=== PATIENT | male | born 1995 | race Caucasian/White ===

== ENCOUNTER 2017-02-14 22:25 | Emergency (ER) | payer MEDICAID ==
[2017-02-14 22:40] VITALS: BP 117/57; PULSE 90; RESP 16; TEMP 98.2; O2SAT 99
--- NOTE | 2017-02-14 23:56 | ED PDOC ---
Lower Extremity Pain/Injury Chief Complaint (Nursing): Lower Extremity Problem/Injury Chief Complaint (Provider): Non-traumatic, right ankle pain History Per: Patient History/Exam Limitations: no limitations Onset/Duration Of Symptoms: Days (3) Current Symptoms Are (Timing): Still Present Severity: Moderate Pain Scale Rating Of: 4 Past Medical History Vital Signs: Last Vital Signs Temp 98.2 F 02/14/17 22:38 Pulse 90 02/14/17 22:38 Resp 16 02/14/17 22:38 BP 117/57 L 02/14/17 22:38 Pulse Ox 99 02/14/17 22:38 - Medical History PMH: Anxiety, Asthma, Depression, Schizophrenia - Family History Family History: States: Unknown Family Hx - Immunization History Hx Tetanus Toxoid Vaccination: No Hx Influenza Vaccination: No Hx Pneumococcal Vaccination: No - Home Medications Home Medications: Ambulatory Orders Medication Instructions Recorded Minocycline 75 mg PO DAILY 10/05/14 Multi Vitamins Plus Calcium 1 mg PO DAILY 10/05/14 Childrens Seroquel 150 mg PO DAILY 10/05/14 Clindamycin [Cleocin] 1 tab PO QID #40 cap 09/07/16 Ibuprofen [Motrin] 600 mg PO Q8 PRN #21 tab 09/07/16 Guaifenesin [Adult Tussin Chest 20 ml PO Q6 PRN #400 ml 12/09/16 Congestion] Ibuprofen [Motrin] 600 mg PO Q8 PRN #15 tab 12/09/16 Ibuprofen [Motrin Tab] 800 mg PO Q6H PRN #20 tab 02/14/17 - Allergies Allergies/Adverse Reactions: Allergies Allergy/AdvReac Type Severity Reaction Status Date / Time nut - unspecified Allergy RASH Verified 08/20/16 17:15 shellfish derived Allergy ANAPHYLAXIS Verified 08/20/16 17:15 - ECG O2 Sat by Pulse Oximetry: 99 Disposition - Clinical Impression Clinical Impression: Tendonitis - Patient ED Disposition Is Patient to be Admitted: No Counseled Patient/Family Regarding: Diagnosis, Need For Followup, Rx Given - Disposition Referrals: [facility] [Outside] [facility] [Outside] Disposition: Routine/Home Disposition Time: 23:55 Condition: GOOD Prescriptions: Ibuprofen [Motrin Tab] 800 mg PO Q6H PRN #20 tab PRN Reason: Pain Instructions: Tendinitis (ED)
--- NOTE | 2017-02-15 09:24 | RAD ---
HISTORY: Lateral ankle pain, no trauma COMPARISON: No prior FINDINGS: BONES: Normal. No fracture. JOINTS: Normal. No osteoarthritis. SOFT TISSUE: Normal. OTHER FINDINGS: None . IMPRESSION: Normal Bone Xray.
== END 2017-02-15 00:21 | disposition home or self-care (01) ==
LOC: H.ER 22:25
DX: M25.571 Pain in right ankle and joints of right foot (principal)

== ENCOUNTER 2017-03-30 12:41 | Emergency (ER) | payer MEDICAID ==
[2017-03-30 13:11] VITALS: BP 122/69; PULSE 68; RESP 16; TEMP 98; O2SAT 100
[2017-03-30] MEDS ORDERED: TDAP Vaccine 0.5 mL Syr IM ONE (13:18)
--- NOTE | 2017-03-30 13:21 | ED PDOC ---
HPI: Skin/Bite Injury Time Seen by Provider: 03/30/17 13:04 Chief Complaint (Provider): Dog bite History Per: Patient History/Exam Limitations: no limitations Onset/Duration Of Symptoms: Mins Current Symptoms Are (Timing): Still Present Location Of Injury: Right: Forearm, Anterior: Forearm Quality Of Symptoms: Painful Severity: Moderate Additional History Per: Patient Additional Complaint(s): The pt is a 21yo male with PMHx of Asthma, presents to the ED for evaluation of a dog bite sustained from his pet. Pt reports he has owned the dog for 2 months and is unsure of the pet's immunization status. Pt denies any numbness and tingling to his arm and reports his tetanus is not up to date. Pt currently offers no additional medical complaints. - Animal Bite Description Of The Attack: Playing With Animal Description Of The Animal: Family Pet Animal Appears: Well Animal's Immunization Status: Unknown Past Medical History Reviewed: Historical Data, Nursing Documentation, Vital Signs Vital Signs: Last Vital Signs Temp 98 F 03/30/17 13:10 Pulse 68 03/30/17 13:10 Resp 16 03/30/17 13:10 BP 122/69 03/30/17 13:10 Pulse Ox 100 03/30/17 13:28 - Medical History PMH: Anxiety, Asthma, Depression, Schizophrenia - Family History Family History: States: Unknown Family Hx - Immunization History Hx Tetanus Toxoid Vaccination: No Hx Influenza Vaccination: No Hx Pneumococcal Vaccination: No - Home Medications Home Medications: Ambulatory Orders Medication Instructions Recorded Minocycline 75 mg PO DAILY 10/05/14 Multi Vitamins Plus Calcium 1 mg PO DAILY 10/05/14 Childrens Seroquel 150 mg PO DAILY 10/05/14 Clindamycin [Cleocin] 1 tab PO QID #40 cap 09/07/16 Ibuprofen [Motrin] 600 mg PO Q8 PRN #21 tab 09/07/16 Guaifenesin [Adult Tussin Chest 20 ml PO Q6 PRN #400 ml 12/09/16 Congestion] Ibuprofen [Motrin] 600 mg PO Q8 PRN #15 tab 12/09/16 Ibuprofen [Motrin Tab] 800 mg PO Q6H PRN #20 tab 02/14/17 Amoxicillin/Clavulanate [Augmentin 1 tab PO BID #20 tab 03/30/17 500 MG-125 MG] - Allergies Allergies/Adverse Reactions: Allergies Allergy/AdvReac Type Severity Reaction Status Date / Time nut - unspecified Allergy RASH Verified 08/20/16 17:15 shellfish derived Allergy ANAPHYLAXIS Verified 08/20/16 17:15 Review of Systems ROS Statement: Except As Marked, All Systems Reviewed And Found Negative Musculoskeletal: Positive for: Other (superficial bite wound to right forearm) Neurological: Negative for: Weakness, Numbness, Other (tingling in right forearm ) Physical Exam - Reviewed Nursing Documentation Reviewed: Yes Vital Signs Reviewed: Yes - Physical Exam Appears: Positive for: Well, Non-toxic, No Acute Distress Head Exam: Positive for: ATRAUMATIC, NORMAL INSPECTION, NORMOCEPHALIC Skin: Positive for: Normal Color, Warm, DRY Eye Exam: Positive for: Normal appearance Neck: Positive for: Normal Cardiovascular/Chest: Positive for: Regular Rate, Rhythm Respiratory: Negative for: Respiratory Distress Extremity: Positive for: Normal ROM (normal ROM actively of right wrist and elbow), Other (superficial bite wound on volar surface of right mid-forearm. No bleeding or erythema noted.). Negative for: Deformity, Swelling - ECG O2 Sat by Pulse Oximetry: 100 (RA) Pulse Ox Interpretation: Normal Medical Decision Making Medical Decision Making: Time: 1320 Impression: Superficial bite wound on right forearm Plan: -- TDAP booster -- Clean and irrigate wound with nl saline --Reassess 1330 Pt stable for d/c home. Scribe Attestation: All records were documented by Vesta Kearney, acting as a Scribe for FÉLIX Hoffman. Provider Scribe Attestation: All medical record entries made by the Scribe were at my direction and personally dictated by me. I have reviewed the chart and agree that the record accurately reflects my personal performance of the history, physical exam, medical decision making, and the department course for this patient. I have also personally directed, reviewed, and agree with the discharge instructions and disposition. Disposition - Clinical Impression Clinical Impression: Dog bite - Patient ED Disposition Is Patient to be Admitted: No - Disposition Referrals: [facility] [Outside] Disposition: Routine/Home Disposition Time: 13:32 Condition: GOOD Additional Instructions: Follow up with [facility] in 2 days for wound check. Prescriptions: Amoxicillin/Clavulanate [Augmentin 500 MG-125 MG] 1 tab PO BID #20 tab
== END 2017-03-30 13:39 | disposition home or self-care (01) ==
LOC: H.ER 12:41
DX: S51.851A Open bite of right forearm, initial encounter (principal); W54.0XXA Bitten by dog, initial encounter; Y92.89 Other specified places as the place of occurrence of the external cause; Z23 Encounter for immunization

== ENCOUNTER 2017-07-21 23:30 | Emergency (ER) | payer MEDICAID ==
[2017-07-21 23:39] VITALS: BP 141/77; PULSE 66; RESP 16; TEMP 98; O2SAT 99
--- NOTE | 2017-07-21 23:56 | ED PDOC ---
HPI: Wound Care - HPI Time Seen by Provider: 07/21/17 23:45 Chief Complaint (Nursing): Wound Check Chief Complaint (Provider): Injury History Per: Patient History Of Present Illness: Pt. presents after injury at [facility]. Pt. was jostling with his girlfriend at [facility] and fell on his left outstretched hand and scraped his left forearm dorsal surface on the pavement. Pt. states he cleaned the abrasion with peroxide. Pt. states since then he has a burning sensation which has not resolved. Pt. states just prior to arrival to the E.R. was at his girlfriend's house when the burning became really bad. Pt. states he is not taking and pain medication and has not putting any ointments on the wound. On ROS, pt. denies any fever, chills, pus, drainage, or blood at the site of the wound. Exam Limitations: no limitations Onset/Duration Of Symptoms: Days (Two) Current Symptoms Are (Timing): Still Present Location Of Injury: Left: Forearm Quality Of Symptoms: Other (Burning) Severity: Moderate Past Medical History Vital Signs: Last Vital Signs Temp 98.0 F 07/21/17 23:36 Pulse 66 07/21/17 23:36 Resp 16 07/21/17 23:36 BP 141/77 07/21/17 23:36 Pulse Ox 99 07/21/17 23:36 - Medical History PMH: Anxiety, Asthma, Depression, Schizophrenia Other PMH: ADHD - Surgical History Surgical History: No Surg Hx - Family History Family History: States: Unknown Family Hx - Living Arrangements Living Arrangements: With Family - Social History Current smoker - smoking cessation education provided: No Ex-Smoker (has not smoked in the last 12 months): No Alcohol: None Drugs: Denies - Immunization History Hx Tetanus Toxoid Vaccination: No Hx Influenza Vaccination: No Hx Pneumococcal Vaccination: No - Home Medications Home Medications: Ambulatory Orders Medication Instructions Recorded Minocycline 75 mg PO DAILY 10/05/14 Multi Vitamins Plus Calcium 1 mg PO DAILY 10/05/14 Childrens Seroquel 150 mg PO DAILY 10/05/14 Clindamycin [Cleocin] 1 tab PO QID #40 cap 09/07/16 Ibuprofen [Motrin] 600 mg PO Q8 PRN #21 tab 09/07/16 Guaifenesin [Adult Tussin Chest 20 ml PO Q6 PRN #400 ml 12/09/16 Congestion] Ibuprofen [Motrin] 600 mg PO Q8 PRN #15 tab 12/09/16 Ibuprofen [Motrin Tab] 800 mg PO Q6H PRN #20 tab 02/14/17 Amoxicillin/Clavulanate [Augmentin 1 tab PO BID #20 tab 03/30/17 500 MG-125 MG] - Allergies Allergies/Adverse Reactions: Allergies Allergy/AdvReac Type Severity Reaction Status Date / Time nut - unspecified Allergy RASH Verified 08/20/16 17:15 shellfish derived Allergy ANAPHYLAXIS Verified 08/20/16 17:15 seafood Allergy ANAPHYLAXIS Uncoded 07/21/17 23:36 Review of Systems Constitutional: Negative for: Fever, Chills, Sweats Eyes: Negative for: Pain, Vision Change, Conjunctivae Inflammation ENT: Negative for: Ear Pain, Ear Discharge, Nose Pain, Nose Discharge Cardiovascular: Negative for: Chest Pain, Palpitations Respiratory: Negative for: Cough, Shortness of Breath, Hemoptysis Gastrointestinal: Negative for: Nausea, Vomiting, Abdominal Pain, Diarrhea Genitourinary Male: Negative for: Dysuria, Frequency, Incontinence Musculoskeletal: Negative for: Neck Pain, Shoulder Pain, Arm Pain Skin: Positive for: Other (Abrasion) Neurological: Negative for: Weakness, Numbness Physical Exam - Reviewed Vital Signs Reviewed: Yes - Physical Exam Appears: Positive for: Non-toxic, No Acute Distress Skin: Positive for: Rash (+abrasion noted on left forearm well healing, radial pulses +2 bilaterally) Eye Exam: Positive for: Normal appearance. Negative for: Scleral icterus Neck: Positive for: Painless ROM, Supple Cardiovascular/Chest: Positive for: Regular Rate, Rhythm. Negative for: Murmur Respiratory: Positive for: Normal Breath Sounds. Negative for: Respiratory Distress Gastrointestinal/Abdominal: Positive for: Soft. Negative for: Tenderness Neurologic/Psych: Positive for: Alert, Oriented - ECG O2 Sat by Pulse Oximetry: 99 - Progress ED Course And Treament: Bacitracin Sterile dressing Medical Decision Making Medical Decision Makin y.o. male with no significant medical hx with a superficial abrasion. Bacitracin applied and sterile dressing placed. Pt. to be discharged with Bacitracin and follow up with PMD. Avoid use of Peroxide and and Alcohol. Disposition - Clinical Impression Clinical Impression: Abrasion, Abrasion forearm - Patient ED Disposition Is Patient to be Admitted: No Discussed With Dr.: Yaya Aponte - Disposition Disposition: Routine/Home Disposition Time: 00:17 Condition: GOOD Forms: [facility] (Nicaraguan)
== END 2017-07-22 00:30 | disposition home or self-care (01) ==
LOC: H.ER 23:30
DX: S50.812A Abrasion of left forearm, initial encounter (principal); W19.XXXA Unspecified fall, initial encounter; Y92.89 Other specified places as the place of occurrence of the external cause; F20.9 Schizophrenia, unspecified; F90.9 Attention-deficit hyperactivity disorder, unspecified type

== ENCOUNTER 2017-10-30 22:08 | Emergency (ER) | payer MEDICAID ==
[2017-10-30 22:24] VITALS: BP 131/71; PULSE 78; RESP 20; TEMP 98.9; O2SAT 97
--- NOTE | 2017-10-30 22:26 | ED PDOC ---
HPI: General Adult Time Seen by Provider: 10/30/17 22:26 Chief Complaint (Nursing): Abnormal Skin Integrity Chief Complaint (Provider): rash History Per: Patient Additional Complaint(s): 22-year-old male presents with itchy rash to right side of neck that he first noticed yesterday. He denies any known allergen exposure. Patient had similar rash to left arm last week but this resolved completely. No recent travel. No fever or chills. Past Medical History Reviewed: Historical Data, Nursing Documentation, Vital Signs Vital Signs: Last Vital Signs Temp 98.9 F 10/30/17 22:22 Pulse 78 10/30/17 22:22 Resp 20 10/30/17 22:22 BP 131/71 10/30/17 22:22 Pulse Ox 97 10/30/17 23:01 - Medical History PMH: Anxiety, Asthma, Depression, Schizophrenia - Surgical History Other surgeries: left eye surgery - Family History Family History: States: Unknown Family Hx - Living Arrangements Living Arrangements: With Family - Social History Current smoker - smoking cessation education provided: No Alcohol: None Drugs: Denies - Home Medications Home Medications: Ambulatory Orders Medication Instructions Recorded Minocycline 75 mg PO DAILY 10/05/14 Multi Vitamins Plus Calcium 1 mg PO DAILY 10/05/14 Childrens Seroquel 150 mg PO DAILY 10/05/14 Clindamycin [Cleocin] 1 tab PO QID #40 cap 09/07/16 Ibuprofen [Motrin] 600 mg PO Q8 PRN #21 tab 09/07/16 Guaifenesin [Adult Tussin Chest 20 ml PO Q6 PRN #400 ml 12/09/16 Congestion] Ibuprofen [Motrin] 600 mg PO Q8 PRN #15 tab 12/09/16 Ibuprofen [Motrin Tab] 800 mg PO Q6H PRN #20 tab 02/14/17 Amoxicillin/Clavulanate [Augmentin 1 tab PO BID #20 tab 03/30/17 500 MG-125 MG] Bacitracin OINT 1 applic TP BID #1 tube 07/22/17 Fluticasone Nasal [Flonase] 1 spr NS DAILY #1 spr 10/04/17 Ibuprofen [Motrin Tab] 600 mg PO Q6 #30 tab 10/04/17 Hydrocortisone [Hydrocortisone 1 applic TOP TID #1 tube 10/30/17 2.5% Cream] - Allergies Allergies/Adverse Reactions: Allergies Allergy/AdvReac Type Severity Reaction Status Date / Time nut - unspecified Allergy RASH Verified 08/20/16 17:15 shellfish derived Allergy ANAPHYLAXIS Verified 08/20/16 17:15 seafood Allergy ANAPHYLAXIS Uncoded 07/21/17 23:36 Review of Systems ROS Statement: Except As Marked, All Systems Reviewed And Found Negative Constitutional: Negative for: Fever Skin: Positive for: Rash Physical Exam - Reviewed Nursing Documentation Reviewed: Yes Vital Signs Reviewed: Yes - Physical Exam Appears: Positive for: Well, Non-toxic, No Acute Distress Head Exam: Positive for: ATRAUMATIC Skin: Positive for: Rash (Localized erythematous urticarial rash noted to the right side of her neck, no pustular or vesicular lesions) Eye Exam: Positive for: Normal appearance Neck: Positive for: Normal Extremity: Negative for: Pedal Edema Neurologic/Psych: Positive for: Alert, Oriented - ECG O2 Sat by Pulse Oximetry: 97 Pulse Ox Interpretation: Normal Medical Decision Making Medical Decision Makin22 year old male with contact dermatitis Plan: PO benadryl Rx hydrocortisone cream, advised benadryl as needed for itching. Patient was referred to clinic for follow up. Disposition - Clinical Impression Clinical Impression: Contact dermatitis - Patient ED Disposition Is Patient to be Admitted: No Counseled Patient/Family Regarding: Diagnosis, Need For Followup, Rx Given - Disposition Referrals: [facility] [Outside] Disposition: Routine/Home Disposition Time: 22:57 Condition: STABLE Additional Instructions: Apply rx cream as directed. Over the counter benadryl as needed for itching. Follow up with clinic. Prescriptions: Hydrocortisone [Hydrocortisone 2.5% Cream] 1 applic TOP TID #1 tube Instructions: Contact Dermatitis (ED) Forms: [employer] (Kyrgyz)
== END 2017-10-30 23:44 | disposition home or self-care (01) ==
LOC: H.ER 22:08
DX: L25.9 Unspecified contact dermatitis, unspecified cause (principal); F20.9 Schizophrenia, unspecified; F32.9 Major depressive disorder, single episode, unspecified; F41.9 Anxiety disorder, unspecified; J45.909 Unspecified asthma, uncomplicated

== ENCOUNTER 2018-01-14 20:31 | Emergency (ER) | payer MEDICAID ==
[2018-01-14 20:36] VITALS: BP 133/70; PULSE 77; RESP 16; TEMP 98.1; O2SAT 100
--- NOTE | 2018-01-14 21:40 | ED PDOC ---
Lower Extremity Pain/Injury Time Seen by Provider: 01/14/18 21:15 Chief Complaint (Nursing): Lower Extremity Problem/Injury Chief Complaint (Provider): right knee pain History Per: Patient History/Exam Limitations: no limitations Onset/Duration Of Symptoms: Days (2) Current Symptoms Are (Timing): Still Present Additional History Per: Patient Additional Complaint(s): 22 y/o male presents with posterior right knee pain x 2 days. Pain worse when weight-bearing. Denies known trauma, fever, numbness/weakness right lower extremity, right leg swelling, calf pain. No medication taken for pain relief thus far. Past Medical History Reviewed: Historical Data, Nursing Documentation, Vital Signs Vital Signs: Last Vital Signs Temp 98.1 F 01/14/18 20:34 Pulse 77 01/14/18 20:34 Resp 16 01/14/18 20:34 BP 133/70 01/14/18 20:34 Pulse Ox 100 01/14/18 20:34 - Medical History PMH: Anxiety, Asthma, Depression, Schizophrenia - Family History Family History: States: Unknown Family Hx - Immunization History Hx Tetanus Toxoid Vaccination: No Hx Influenza Vaccination: No Hx Pneumococcal Vaccination: No - Home Medications Home Medications: Ambulatory Orders Medication Instructions Recorded Minocycline 75 mg PO DAILY 10/05/14 Multi Vitamins Plus Calcium 1 mg PO DAILY 10/05/14 Childrens Seroquel 150 mg PO DAILY 10/05/14 Clindamycin [Cleocin] 1 tab PO QID #40 cap 09/07/16 Ibuprofen [Motrin] 600 mg PO Q8 PRN #21 tab 09/07/16 Guaifenesin [Adult Tussin Chest 20 ml PO Q6 PRN #400 ml 12/09/16 Congestion] Ibuprofen [Motrin] 600 mg PO Q8 PRN #15 tab 12/09/16 Ibuprofen [Motrin Tab] 800 mg PO Q6H PRN #20 tab 02/14/17 Amoxicillin/Clavulanate [Augmentin 1 tab PO BID #20 tab 03/30/17 500 MG-125 MG] Bacitracin OINT 1 applic TP BID #1 tube 07/22/17 Fluticasone Nasal [Flonase] 1 spr NS DAILY #1 spr 10/04/17 Ibuprofen [Motrin Tab] 600 mg PO Q6 #30 tab 10/04/17 Hydrocortisone [Hydrocortisone 1 applic TOP TID #1 tube 10/30/17 2.5% Cream] Ibuprofen [Motrin Tab] 1 tab PO Q6 PRN #20 tab 01/14/18 - Allergies Allergies/Adverse Reactions: Allergies Allergy/AdvReac Type Severity Reaction Status Date / Time nut - unspecified Allergy RASH Verified 08/20/16 17:15 shellfish derived Allergy ANAPHYLAXIS Verified 08/20/16 17:15 seafood Allergy ANAPHYLAXIS Uncoded 07/21/17 23:36 Review of Systems ROS Statement: Except As Marked, All Systems Reviewed And Found Negative Musculoskeletal: Positive for: Leg Pain (right knee) Physical Exam - Reviewed Nursing Documentation Reviewed: Yes Vital Signs Reviewed: Yes - Physical Exam Appears: Positive for: Well, Non-toxic, No Acute Distress Extremity: Positive for: Normal ROM, Tenderness (posterior right knee; no swelling, erythema noted). Negative for: Pedal Edema, Calf Tenderness, Deformity, Swelling Neurologic/Psych: Positive for: Alert, Oriented. Negative for: Motor/Sensory Deficits - ECG O2 Sat by Pulse Oximetry: 100 - Other Rad xray right knee X-Ray: Viewed By Ca X-Ray Interpretation: no acute findings - Progress ED Course And Treament: xray, u/s, ibuprofen PO EXAM: US Duplex Right Lower Extremity Veins CLINICAL HISTORY: 22 years old, male; Pain; Leg, upper; Right; Additional info: Posterior knee pain TECHNIQUE: Real-time ultrasound scan of the veins of the right lower extremity with color Doppler flow, spectral waveform analysis and compression. COMPARISON: No relevant prior studies available. FINDINGS: Deep veins: Unremarkable. No DVT in the visualized common femoral, femoral, proximal deep femoral or popliteal veins. The veins demonstrate normal color flow, are normally compressible, with normal phasic flow and/or augmentation response. Soft tissues: No acute findings. No popliteal cyst. IMPRESSION: Normal right lower extremity duplex venous ultrasound. Patient educated on findings, discharged with rx ibuprofen. Advised RICE Follow up ortho Return precautions given. Disposition - Clinical Impression Clinical Impression: Posterior right knee pain - Patient ED Disposition Is Patient to be Admitted: No Counseled Patient/Family Regarding: Studies Performed, Diagnosis, Need For Followup, Rx Given - Disposition Referrals: Rashid Regan MD [Medical Doctor] - Disposition: Routine/Home Disposition Time: 23:52 Condition: IMPROVED Prescriptions: Ibuprofen [Motrin Tab] 1 tab PO Q6 PRN #20 tab PRN Reason: Pain, Moderate (4-7) Instructions: Knee Pain (ED), RICE Therapy (ED) Forms: [employer] (Luxembourgish)
--- NOTE | 2018-01-14 23:07 | US ---
EXAM: US Duplex Right Lower Extremity Veins CLINICAL HISTORY: 22 years old, male; Pain; Leg, upper; Right; Additional info: Posterior knee pain TECHNIQUE: Real-time ultrasound scan of the veins of the right lower extremity with color Doppler flow, spectral waveform analysis and compression. COMPARISON: No relevant prior studies available. FINDINGS: Deep veins: Unremarkable. No DVT in the visualized common femoral, femoral, proximal deep femoral or popliteal veins. The veins demonstrate normal color flow, are normally compressible, with normal phasic flow and/or augmentation response. Soft tissues: No acute findings. No popliteal cyst. IMPRESSION: Normal right lower extremity duplex venous ultrasound.
--- NOTE | 2018-01-15 11:05 | RAD ---
PROCEDURE: Right Knee Radiographs. HISTORY: Atraumatic pain COMPARISON: None. FINDINGS: BONES: Bone alignment and mineralization are normal. There is no acute displaced fracture or bone destruction. JOINTS: Normal. No osteoarthritis. JOINT EFFUSION: There is a small suprapatellar joint effusion. OTHER FINDINGS: None. IMPRESSION: No acute fracture or dislocation.
== END 2018-01-15 00:21 | disposition home or self-care (01) ==
LOC: H.ER 20:31
DX: M25.561 Pain in right knee (principal); F20.9 Schizophrenia, unspecified

== ENCOUNTER 2018-10-04 19:15 | Emergency (ER) | payer MEDICAID ==
[2018-10-04 19:19] VITALS: BP 114/69; PULSE 74; RESP 16; TEMP 97.8; O2SAT 98
[2018-10-04] MEDS ORDERED: Oxycodone/Acetaminophen 5/325 mg Tab PO STA (19:35)
[2018-10-04] MEDS ORDERED: Oxycodone/Acetaminophen 5/325 mg Tab ONE (19:41)
--- NOTE | 2018-10-04 19:42 | ED PDOC ---
Addendum entered and electronically signed by Ana Paula Paulino PA-C 10/04/18 22:11: Addendum Addendum: 10/04/18 22:11 Pt ambulated on discharge with steady gait. Original Note: HPI: Back Time Seen by Provider: 10/04/18 19:18 Chief Complaint (Nursing): Back Pain Chief Complaint (Provider): Back Pain History Per: Patient History/Exam Limitations: no limitations Current Symptoms Are (Timing): Still Present Additional Complaint(s): Kevin Tompkins, a 22 year old male with a past medical history of ADHD, bip olar disorder, and schizophrenia, presents to the ED complaining of localized lower back and tailbone pain. He reports tripping on uneven pavement and landing on his back. The patient denies numbness, tingling, and bladder or bowel incontinence. The patient reports that he has not taken his medications in awhile. No other complaints were noted. PCP: Dr. Akiko Soriano Past Medical History Reviewed: Historical Data, Nursing Documentation, Vital Signs Vital Signs: Last Vital Signs Temp 97.8 F 10/04/18 19:18 Pulse 74 10/04/18 19:18 Resp 16 10/04/18 19:18 BP 114/69 10/04/18 19:18 Pulse Ox 98 10/04/18 19:18 - Medical History PMH: Anxiety, Asthma, Bipolar Disorder, Depression, Schizophrenia Other PMH: ADHD - Family History Family History: States: Unknown Family Hx - Social History Current smoker - smoking cessation education provided: No Alcohol: None Drugs: Denies - Immunization History Hx Tetanus Toxoid Vaccination: No Hx Influenza Vaccination: No Hx Pneumococcal Vaccination: No - Home Medications Home Medications: Ambulatory Orders Medication Instructions Recorded Minocycline 75 mg PO DAILY 10/05/14 Multi Vitamins Plus Calcium 1 mg PO DAILY 10/05/14 Childrens Seroquel 150 mg PO DAILY 10/05/14 Clindamycin [Cleocin] 1 tab PO QID #40 cap 09/07/16 Ibuprofen [Motrin] 600 mg PO Q8 PRN #21 tab 09/07/16 Guaifenesin [Adult Tussin Chest 20 ml PO Q6 PRN #400 ml 12/09/16 Congestion] Ibuprofen [Motrin] 600 mg PO Q8 PRN #15 tab 12/09/16 Ibuprofen [Motrin Tab] 800 mg PO Q6H PRN #20 tab 02/14/17 Amoxicillin/Clavulanate [Augmentin 1 tab PO BID #20 tab 03/30/17 500 MG-125 MG] Bacitracin OINT 1 applic TP BID #1 tube 07/22/17 Fluticasone Nasal [Flonase] 1 spr NS DAILY #1 spr 10/04/17 Ibuprofen [Motrin Tab] 600 mg PO Q6 #30 tab 10/04/17 Hydrocortisone [Hydrocortisone 1 applic TOP TID #1 tube 10/30/17 2.5% Cream] Ibuprofen [Motrin Tab] 1 tab PO Q6 PRN #20 tab 01/14/18 oxyCODONE/Acetaminophen [Percocet 1 ea PO Q6H PRN #15 tab 10/04/18 5/325 mg Tab] - Allergies Allergies/Adverse Reactions: Allergies Allergy/AdvReac Type Severity Reaction Status Date / Time nut - unspecified Allergy RASH Verified 10/04/18 19:18 shellfish derived Allergy ANAPHYLAXIS Verified 10/04/18 19:18 seafood Allergy ANAPHYLAXIS Uncoded 10/04/18 19:18 Review of Systems ROS Statement: Except As Marked, All Systems Reviewed And Found Negative Gastrointestinal: Negative for: Constipation Genitourinary Male: Negative for: Dysuria, Frequency, Incontinence Musculoskeletal: Positive for: Back Pain (lower back and tailbone pain) Neurological: Negative for: Numbness, Other (tingling) Physical Exam - Reviewed Nursing Documentation Reviewed: Yes Vital Signs Reviewed: Yes - Physical Exam Appears: Positive for: Well, Non-toxic, No Acute Distress Head Exam: Positive for: ATRAUMATIC, NORMAL INSPECTION, NORMOCEPHALIC Skin: Positive for: Normal Color, Warm, DRY Eye Exam: Positive for: Normal appearance ENT: Positive for: Normal ENT Inspection Neck: Positive for: Normal Respiratory: Negative for: Respiratory Distress Gastrointestinal/Abdominal: Positive for: Normal Exam Back: Positive for: Vertebral Tenderness (sacral tenderness) Extremity: Positive for: Normal ROM Neurologic/Psych: Positive for: Alert, Oriented - ECG O2 Sat by Pulse Oximetry: 98 (RA) Pulse Ox Interpretation: Normal Medical Decision Making Medical Decision Making: Time: 1932 Initial Plan: --CT lumbar spine --percocet 5/325 mg tab PO 2040 --CT lumbar spine FINDINGS: ALIGNMENT: Grade 1 retrolisthesis of L5 on S1. Mild levoscoliosis. DISCS/DEGENERATIVE CHANGES: T12/L1: No significant central canal or neural foraminal stenosis. L1/L2: No significant central canal or neural foraminal stenosis. L2/L3: No significant central canal or neural foraminal stenosis. L3/4: No significant central canal or neural foraminal stenosis. L4/5: No significant central canal or neural foraminal stenosis. L5/S1: Central herniated disk with mild central canal and bilateral neural foraminal stenosis. BONES: No acute fracture or aggressive appearing osseous lesion. SOFT TISSUES: The soft tissues are unremarkable. MISCELLANEOUS: No abnormal contrast enhancement. IMPRESSION: L5/S1: Central herniated disk with mild central canal and bilateral neural foraminal stenosis. Grade 1 retrolisthesis of L5 on S1. Mild levoscoliosis. Discussed with Dr. Matthew Scribe Attestation: Documented by Jayant Lennon, acting as a scribe for Ana Paula Paulino PA-C Provider Scribe Attestation: All medical record entries made by the Scribe were at my direction and personally dictated by me. I have reviewed the chart and agree that the record accurately reflects my personal performance of the history, physical exam, medical decision making, and the department course for this patient. I have also personally directed, reviewed, and agree with the discharge instructions and disposition. Disposition - Clinical Impression Clinical Impression: Low back pain - Patient ED Disposition Is Patient to be Admitted: No Counseled Patient/Family Regarding: Diagnosis, Need For Followup, Rx Given - Disposition Referrals: Jayson Gauthier MD [Staff Provider] - Disposition: Routine/Home Disposition Time: 21:40 Condition: GOOD Prescriptions: oxyCODONE/Acetaminophen [Percocet 5/325 mg Tab] 1 ea PO Q6H PRN #15 tab PRN Reason: Pain, Severe (8-10) Instructions: Low Back Pain in Adults Forms: [facility] (Eth[place]ian)
--- NOTE | 2018-10-04 22:28 | CT ---
Date of service: 10/04/2018 PROCEDURE: CT Lumbar Spine without contrast HISTORY: low back pain, fall COMPARISON: None available. TECHNIQUE: Axial computed tomography images were obtained of the lumbar spine without the use of intravenous contrast. Coronal and sagittal reformatted images were created and reviewed. Radiation dose: Total exam DLP = 338.27 mGy-cm. This CT exam was performed using one or more of the following dose reduction techniques: Automated exposure control, adjustment of the mA and/or kV according to patient size, and/or use of iterative reconstruction technique. FINDINGS: VERTEBRAE: Unremarkable. No fracture. Normal alignment. DISCS/SPINAL CANAL/NEURAL FORAMINA: L1-2: Unremarkable. L2-3: Unremarkable. L3-4: Unremarkable. L4-5: Unremarkable. L5-S1: Grade 1 retrolisthesis with central disc herniation and thecal sac indentation. No fracture. PARASPINAL SOFT TISSUES: Unremarkable. OTHER FINDINGS: Levoscoliosis. IMPRESSION: L5-S1: Grade 1 retrolisthesis with central disc herniation and thecal sac indentation. No fracture. Levoscoliosis.
== END 2018-10-04 22:06 | disposition home or self-care (01) ==
LOC: H.ER 19:15
DX: M54.5 Low back pain (principal); Z86.59 Personal history of other mental and behavioral disorders; F90.9 Attention-deficit hyperactivity disorder, unspecified type; J45.909 Unspecified asthma, uncomplicated